=== PATIENT | male | born 1985 | race American Indian/Alaskan Native ===

== ENCOUNTER 2016-05-25 15:46 | Emergency (ER) | payer SELFPAY ==
[2016-05-25 16:30] VITALS: BP 138/86
[2016-05-25] MEDS ORDERED: XYLOCAINE 1% MPF 5 mL ONE (17:19)
[2016-05-25] MEDS ORDERED: XYLOCAINE 1%/ EPI 1:100,000 INFILTRATI ONE (17:48)
[2016-05-25] MEDS ORDERED: TRIPLE ANTIBIOTIC TP ONE (17:48)
[2016-05-25] MEDS ORDERED: NACL 0.9% IR ONE (17:48)
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
== END 2016-05-25 18:11 | disposition home or self-care (01) ==
LOC: ED 15:46
DX: S81.012A Laceration without foreign body, left knee, initial encounter (principal); F17.200 Nicotine dependence, unspecified, uncomplicated; F12.10 Cannabis abuse, uncomplicated; W26.0XXA Contact with knife, initial encounter; Y93.9 Activity, unspecified; Y92.9 Unspecified place or not applicable; Y99.9 Unspecified external cause status
CPT/HCPCS: A6250